=== PATIENT | male | born 2000 | race African-American/Black ===

== ENCOUNTER 2019-11-08 | Emergency (ER) | payer OTHER ==
[2019-11-08] MEDS ORDERED: IBUPROFEN600 MG PO (08:46)
[2019-11-08] MEDS ORDERED: FLEXERIL PO (08:46)
== END 2019-11-08 09:26 | disposition home or self-care (01) | DRG 563 ==
DX: S39.012A Strain of muscle, fascia and tendon of lower back, initial encounter (principal); F17.290 Nicotine dependence, other tobacco product, uncomplicated; X50.3XXA Overexertion from repetitive movements, initial encounter; Y93.02 Activity, running